=== PATIENT | female | born 1945 | race Caucasian/White ===

== ENCOUNTER 2016-12-30 20:11 | Emergency (ER) | payer MEDICARE, BC ==
[2016-12-30] MEDS ORDERED: Acetaminophen TAB* 325 MG PO ONE (20:41)
[2016-12-30 21:00] LABS: Hematocrit 40 % (35-47); Hemoglobin 13.3 g/dl (12.0-16.0); Mean Corpuscular HGB Conc 33 g/dl (31-36); Mean Corpuscular Hemoglobin 30 pg (27-31); Mean Corpuscular Volume 88 fL (80-97); Mean Platelet Volume 10 um3 (7.4-10.4); Red Blood Count 4.52 10^6/ul (4.0-5.4); Red Cell Distribution Width 13 % (10.5-15); White Blood Count 12.7 10^3/ul (3.5-10.8)
[2016-12-30 21:16] LABS: Albumin 4.2 g/dL (3.2-5.2); Calcium 9.1 mg/dL (8.6-10.3); EGFR African American 100.8 (>60); EGFR Non-African American 78.4 (>60); Globulin 2.8 g/dL (2-4); Potassium 3.7 mmol/L (3.5-5.0); Total Bilirubin 0.6 mg/dL (0.2-1.0)
[2016-12-30 21:17] LABS: Troponin I 0.01 ng/mL (<0.04)
--- NOTE | 2016-12-30 21:39 | RAD ---
INDICATION: Fever. COMPARISON: There are no prior studies available for comparison. TECHNIQUE: Dual-energy PA and lateral views of the chest were obtained. FINDINGS: The heart is within normal limits in size. Mediastinal and hilar contours appear within normal limits. The lungs are clear. No pleural effusion is present. IMPRESSION: NO EVIDENCE FOR ACTIVE CARDIOPULMONARY DISEASE.
[2016-12-30] MEDS ORDERED: NS 0.9% 1000 ML* 1,000 ML IV ONE (22:04)
[2016-12-31 00:23] LABS: Urine Bacteria 1+ (Absent); Urine Bilirubin Negative (Negative); Urine Glucose Negative (Negative); Urine Nitrite Negative (Negative)
[2016-12-31] MEDS ORDERED: Levofloxacin TAB* 500 MG PO ONE (00:41)
[2016-12-31 01:12] VITALS: BP 117/64
--- NOTE | 2016-12-31 01:38 | ED ---
Jamshid Benitez SooYoung, scribed for Gunnar Marie on 12/30/16 at 2043 . HPI Febrile Illness - HPI Summary HPI Summary: A 71 y/o F presents to ED with weakness onset before dinner this evening, at approx 1630. Associated sx: shaking as though she had chills, but she didn't feel cold, subjective fever. Denies cough, CP, abd pain. At bedside, oral temp is 100.3 F and temporal temp is 102.2 F. She hasn't eaten dinner yet tonight. PMHx: lupus, RA, neuropathy. - History of Current Complaint Chief Complaint: EDWeakness Time Seen by Provider: 12/30/16 20:32 Hx Obtained From: Patient Onset/Duration: Started Hours Ago, Atraumatic, Still Present Timing: Constant Current Severity: Moderate Pain Intensity: 5 Pain Scale Used: 0-10 Numeric Associated Signs and Symptoms: Other: - see HPI - Allergy/Home Medications Allergies/Adverse Reactions: Allergies Allergy/AdvReac Type Severity Reaction Status Date / Time Gabapentin [From Neurontin] Allergy Rash Verified 12/30/16 20:14 PMH/Surg Hx/FS Hx/Imm Hx Previously Healthy: No - lupus, neuropathy Musculoskeletal History: Reports: Hx Rheumatoid Arthritis Infectious Disease History: Denies: Traveled Outside the [place] in Last 30 Days - Family History Known Family History: Negative: Cardiac Disease, Hypertension, Diabetes - Social History Occupation: Unemployed - OTHER Lives: With Family Hx Substance Use: No Review of Systems Positive: Fever, Other - pos: shaking. Negative: Chills Negative: Chest Pain Negative: Cough Negative: Abdominal Pain Positive: Weakness All Other Systems Reviewed And Are Negative: Yes Physical Exam Triage Information Reviewed: Yes Vital Signs On Initial Exam: Initial Vitals Temp Pulse Resp BP Pulse Ox 99.9 F 89 18 170/93 98 12/30/16 20:15 12/30/16 20:15 12/30/16 20:15 12/30/16 20:15 12/30/16 20:15 Vital Signs Reviewed: Yes Appearance: Positive: Well-Appearing, No Pain Distress Skin: Positive: Warm, Skin Color Reflects Adequate Perfusion, Dry Head/Face: Positive: Normal Head/Face Inspection Eyes: Positive: EOMI, AURY ENT: Positive: Normal ENT inspection Neck: Positive: Supple, Nontender Respiratory/Lung Sounds: Positive: Clear to Auscultation, Breath Sounds Present Cardiovascular: Positive: RRR, Pulses are Symmetrical in both Upper and Lower Extremities Abdomen Description: Positive: Nontender, Soft Bowel Sounds: Positive: Present Musculoskeletal: Positive: Normal, Strength/ROM Intact Neurological: Positive: Normal, Sensory/Motor Intact, Alert, Oriented to Person Place, Time Diagnostics - Vital Signs Vital Signs Temp Pulse Resp BP Pulse Ox 12/30/16 20:15 99.9 F 89 18 170/93 98 - Laboratory Result Diagrams: 12/30/16 20:45 12/30/16 20:45 Lab Statement: Any lab studies that have been ordered have been reviewed, and results considered in the medical decision making process. - Radiology CXR Xray Interpretation: No Acute Changes - IMPRESSION: No evidence for actice cardiopulmonary dz. Radiology Interpretation Completed By: Radiologist - EKG 2051 Cardiac Rate: NL - 86bpm EKG Rhythm: Sinus Rhythm Ectopy: PVCs Course/Dx - Course Course Of Treatment: A 71 y/o F presents to ED with weakness onset before dinner this evening, at approx 1630. Associated sx: shaking as though she had chills, but she didn't feel cold, subjective fever. Denies cough, CP, abd pain. At bedside, oral temp is 100.3 F and temporal temp is 102.2 F. She hasn't eaten dinner yet tonight. PMHx: lupus, RA, neuropathy. Pt given fluids, Tylenol in ED. Bloodwork and lab results are without significant abnormalities except lactic acid is 2.2. UA results show esterase 1+, WBC 2+, RBC 1+, bacteria 1+, and specific gravity is 1.005, squamous epithelia are present. CXR is negative. Will D/C home with Levaquin, to f/u with PCP. - Diagnoses Provider Diagnoses: UTI (urinary tract infection) Discharge - Discharge Plan Condition: Stable Disposition: HOME Prescriptions: Levofloxacin TAB* [Levaquin TAB*] 500 mg PO DAILY 5 Days Levofloxacin TAB* [Levaquin TAB*] 500 mg PO DAILY 5 Days MDD 1 Levofloxacin TAB* [Levaquin TAB*] 500 mg PO DAILY #5 tab MDD 1 Patient Education Materials: Levofloxacin (By mouth), Urinary Traction Infection in Older Adults (ED) Referrals: No Primary Care Phys,NOPCP [Primary Care Provider] - [facility] [place] [facility] [Outside] Additional Instructions: Establish with a primary care provider and follow up in 3 days. Please return to the ED if you experience new or worsening symptoms. The documentation as recorded by the Jamshid lopez SooYoung accurately reflects the service I personally performed and the decisions made by , Gunnar Marie.
--- NOTE | 2017-01-03 09:06 | ED ---
Progress - Progress Note Progress Note: Pt's urine cx and sens reveal levofloxacin is effective. No change in meds at this time. Course/Dx - Course Course Of Treatment: A 71 y/o F presents to ED with weakness onset before dinner this evening, at approx 1630. Associated sx: shaking as though she had chills, but she didn't feel cold, subjective fever. Denies cough, CP, abd pain. At bedside, oral temp is 100.3 F and temporal temp is 102.2 F. She hasn't eaten dinner yet tonight. PMHx: lupus, RA, neuropathy. Pt given fluids, Tylenol in ED. Bloodwork and lab results are without significant abnormalities except lactic acid is 2.2. UA results show esterase 1+, WBC 2+, RBC 1+, bacteria 1+, and specific gravity is 1.005, squamous epithelia are present. CXR is negative. Will D/C home with Levaquin, to f/u with PCP. - Diagnoses Provider Diagnoses: UTI (urinary tract infection)
== END 2016-12-31 01:25 | disposition home or self-care (01) ==
LOC: ED 20:11
DX: N39.0 Urinary tract infection, site not specified (principal); R53.1 Weakness; R50.9 Fever, unspecified
CPT/HCPCS: 36415; 71020; 80053; 81003; 81015; 83605; 84484; 85025; 85610; 85730; 87077; 87086; 87186; 93005; 99284; A9270-GY